=== PATIENT | male | born 1985 | race Two or more races ===

== ENCOUNTER 2021-04-02 12:06 | Inpatient (IN) | payer OTHER ==
[~2021-04-02] VITALS: Ht 177.8 cm; Wt 89.0 kg
[~2021-04-02 12:06] MED LIST: BUPIVACAINE/PF 0.5% ONE; EPINEPHRINE 1 MG/ML, 1ML ONE
[2021-04-02 12:24] VITALS: BP 108/74
[2021-04-02] MEDS ORDERED: GABA-827 PO (12:36)
[2021-04-02] MEDS ORDERED: CHLORHEXIDINE 15 ML UDC ONE (12:36)
[2021-04-02] MEDS ORDERED: oxycodone PO (12:38)
[2021-04-02] MEDS ORDERED: OXYMETAZOLINE NASAL SPRAY 0.05%,30ML ONE (12:55)
[2021-04-02] MEDS ORDERED: LIDOCAINE JELLY 2%, 30GM ONE (12:57)
[2021-04-02] MEDS ORDERED: LACTATED RINGERS 1,000 ML IV SCH (13:00)
[2021-04-02] MEDS ORDERED: CHLORHEXIDINE 15 ML UDC PO ONE (13:00)
[2021-04-02] MEDS ORDERED: MIDAZOLAM 1 MG/ML, 2ML ONE ×2 (13:11→19:14)
[2021-04-02] MEDS ORDERED: FENTANYL PF 250 MCG/5ML ONE (13:28)
[2021-04-02] MEDS ORDERED: HYDROmorphone 1 MG/ML, 1ML INJ ONE ×2 (14:29→15:52)
[2021-04-02] MEDS ORDERED: HYDROmorphone 1 MG/ML, 1ML INJ IVPush PRN (14:30)
[2021-04-02] MEDS ORDERED: ONDANSETRON 2MG/ML, 2ML IVPush PRN ×2 (14:30→22:00)
[2021-04-02] MEDS ORDERED: METHOCARBAMOL 1,000 MG in DEXTROSE 5% 100 ML IV PRN (14:30)
[2021-04-02] MEDS ORDERED: ACETAMINOPHEN 325 MG TABLET PO PRN (14:30)
[2021-04-02] MEDS ORDERED: OXYcodone 5 MG/5 ML ORAL.SOL UDC PO PRN (14:30)
[2021-04-02] MEDS ORDERED: PROMETHAZINE 25 MG SUPP PR PRN (14:30)
[2021-04-02] MEDS ORDERED: LORazepam 2 MG/ML, 1ML IVPush PRN (14:30)
[2021-04-02] MEDS ORDERED: PROMETHAZINE 25 MG/ML, 1ML IVPush PRN (14:30)
[2021-04-02] MEDS ORDERED: BACITRACIN 50,000 UNIT ONE (16:24)
[2021-04-02] MEDS ORDERED: BACITRACIN 50,000 UNIT IRRIG ONE (16:33)
[2021-04-02] MEDS ORDERED: NEOSTIGMINE 1 MG/ML, 10ML ONE (16:53)
[2021-04-02] MEDS ORDERED: ONDANSETRON 2MG/ML, 2ML ONE (16:53)
[2021-04-02] MEDS ORDERED: CEFAZOLIN 1,000 MG ONE ×3 (16:53→16:54)
[2021-04-02] MEDS ORDERED: SUCCINYLCHOLINE 20 MG/ML, 10ML ONE ×2 (16:53→16:54)
[2021-04-02] MEDS ORDERED: PROPOFOL 10 MG/ML, 20ML ONE (16:53)
[2021-04-02] MEDS ORDERED: GLYCOPYRROLATE 0.2MG/1ML, 5ML ONE (16:53)
[2021-04-02] MEDS ORDERED: ROCURONIUM 10MG/ML,5ML ONE (16:53)
[2021-04-02] MEDS ORDERED: DEXAMETHASONE 4 MG/ML, 1ML ONE (16:53)
[2021-04-02] MEDS: FENTANYL PF 100 MCG/2ML IV PRN ×2 (18:00→18:05)
[2021-04-02] MEDS ORDERED: FENTANYL PF 100 MCG/2ML ONE ×2 (18:01→19:01)
[2021-04-02] MEDS ORDERED: LIDOCAINE 1%, 20ML ONE (19:09)
[2021-04-02 19:41] LABS: MEAN CORPUSCULAR HEMOGLOBIN 30.7 pg (27.5-34.5); MEAN CORPUSCULAR HGB CONC 32.5 g/dL (33.2-36.2); PLATELET COUNT 256 x10^3/uL (130-400); RED BLOOD COUNT 3.86 x10^6/uL (4.38-5.82); RED CELL DISTRIBUTION WIDTH 13.2 % (9.4-14.8)
[2021-04-02 19:44] LABS: MD YES
[2021-04-02] MEDS ORDERED: FENTANYL PF 100 MCG/2ML IVPush ONE (20:00)
[2021-04-02] MEDS ORDERED: LACTATED RINGERS 1,000 ML IVBOLUS ONE (20:00)
[2021-04-02] MEDS ORDERED: MIDAZOLAM 1 MG/ML, 2ML IVPush ONE (20:00)
[2021-04-02 20:49] LABS: LYMPH#(MANUAL) 0.45 x10^3/uL (1-3.4); LYMPHS% (MANUAL) 4 % (22-44); MONOS#(MANUAL) 0.22 x10^3/uL (0.3-2.7); MONOS% (MANUAL) 2 % (2-9); POLYCHROMASIA 1+; SEG#(MANUAL) 10.53 x10^3/uL (1.8-6.8); SEGS% (MANUAL) 94 % (42-75)
[2021-04-02 20:54] LABS: <PLATELET ESTIMATE> ADEQUATE; <PLT MORPHOLOGY> NORMAL PLT MORPH
[2021-04-02 21:03] VITALS: BP 130/83
[2021-04-02] MEDS ORDERED: HYDROmorphone 1 MG/ML, 1ML INJ IV PRN (22:00)
[2021-04-02] MEDS: OXYcodone 5 MG/5 ML ORAL.SOL UDC PO PRN (22:33)
[2021-04-03 00:28] VITALS: BP 116/77
[2021-04-03 00:30] VITALS: BP 116/77
[2021-04-03] MEDS: CEFAZOLIN PMX 1GM/50ML 50 ML IV SCH ×2 (01:45→10:02)
[2021-04-03 04:13] VITALS: BP 126/81
[2021-04-03] MEDS: OXYcodone 5 MG/5 ML ORAL.SOL UDC PO PRN ×3 (05:03→18:35)
[2021-04-03 06:30] LABS: BASOPHILS % (AUTO) 0 % (0-1); EOSINOPHILS % (AUTO) 0 % (1-7); LYMPHOCYTES % (AUTO) 15 % (22-44); MEAN CORPUSCULAR HEMOGLOBIN 31.2 pg (27.5-34.5); MEAN CORPUSCULAR HGB CONC 33.7 g/dL (33.2-36.2); MEAN PLATELET VOLUME 8.5 fL (7.4-10.4); MONOCYTES % (AUTO) 8 % (2-9); NEUTROPHILS % (AUTO) 77 % (42-75); PLATELET COUNT 252 x10^3/uL (130-400); RED BLOOD COUNT 3.81 x10^6/uL (4.38-5.82); RED CELL DISTRIBUTION WIDTH 13.2 % (9.4-14.8)
[2021-04-03] MEDS ORDERED: HYDROmorphone 1 MG/ML, 1ML INJ IV PRN (06:30)
[2021-04-03 06:33] LABS: MD NO
[2021-04-03] MEDS: KETOROLAC 30 MG/1 ML IVPush SCH ×3 (07:44→18:35)
[2021-04-03 08:05] VITALS: BP 125/76
[2021-04-03] MEDS: ACETAMINOPHEN 500 MG TABLET PO PRN ×2 (13:05→18:35)
[2021-04-03 20:56] VITALS: BP 102/70
[2021-04-04] MEDS: ACETAMINOPHEN 500 MG TABLET PO PRN ×5 (00:28→22:26)
[2021-04-04] MEDS: OXYcodone 5 MG/5 ML ORAL.SOL UDC PO PRN ×4 (00:28→18:21)
[2021-04-04] MEDS: KETOROLAC 30 MG/1 ML IVPush SCH ×4 (00:28→18:21)
[2021-04-04 02:31] VITALS: BP 104/67
[2021-04-04 07:58] VITALS: BP 106/70
[2021-04-04 12:35] VITALS: BP 120/72
[2021-04-04] MEDS: MAGNESIUM HYDROXIDE 8%, 30ML UDC PO SCH (16:30)
[2021-04-04 20:30] VITALS: BP 119/70
[2021-04-04] MEDS: ACETAMINOPHEN 650 MG/20.3 ML UDC PO PRN (22:54)
[2021-04-05] MEDS: OXYcodone 5 MG/5 ML ORAL.SOL UDC PO PRN ×3 (00:59→13:17)
[2021-04-05] MEDS: KETOROLAC 30 MG/1 ML IVPush SCH (00:59)
[2021-04-05 01:15] VITALS: BP 124/79
[2021-04-05] MEDS: ACETAMINOPHEN 650 MG/20.3 ML UDC PO PRN (05:38)
[2021-04-05 07:54] VITALS: BP 126/83
[2021-04-05] MEDS: MAGNESIUM HYDROXIDE 8%, 30ML UDC PO SCH (08:30)
[2021-04-05] MEDS ORDERED: OXYC5CAP2 PO (08:48)
[2021-04-05 13:23] VITALS: BP 120/75
[2021-04-05 15:52] VITALS: BP 119/76
== END 2021-04-05 16:15 | disposition home or self-care (01) | DRG 515 ==
LOC: OR 12:06 → OBSVTOIN 17:39 → 4NE 17:39 → DCLOUNGE 04-05 16:08
PROVIDERS: ADMIT Orthopaedic Surgery; ATTEND Orthopaedic Surgery
PROC: 0W9930Z Drainage of Right Pleural Cavity with Drainage Device, Percutaneous Approach (ICD-10-PCS; 2021-04-02)
PROC: 0PS504Z Reposition Right Scapula with Internal Fixation Device, Open Approach (ICD-10-PCS; principal; 2021-04-02 13:30)
DX: S42.191A Fracture of other part of scapula, right shoulder, initial encounter for closed fracture (principal); J93.0 Spontaneous tension pneumothorax; Z20.822 Contact with and (suspected) exposure to COVID-19; V86.55XA Driver of 3- or 4- wheeled all-terrain vehicle (ATV) injured in nontraffic accident, initial encounter; Y93.89 Activity, other specified; Y92.89 Other specified places as the place of occurrence of the external cause; Y99.8 Other external cause status
CPT/HCPCS: 36415; 73010; 73030; 76000; J3490; S0020; 71045; 85025; 87635; C1713; J0171; J0690; J1100; J1170; J1885; J2250; J2405; J2704; J2710; J3010; G0378; J0330; J2800; J7120